=== PATIENT | female | born 1995 ===

== ENCOUNTER 2017-03-20 09:59 | Inpatient (IN) | payer OTHER ==
[2017-03-20 10:03] VITALS: BMI 23.4
[2017-03-20] MEDS ORDERED: Sodium Chloride 0.9% 1,000 ML IV STA ×2 (10:31→17:10)
--- NOTE | 2017-03-20 10:40 | ED PDOC ---
HPI: Abdomen Time Seen by Provider: 03/20/17 10:08 Chief Complaint (Nursing): Fever Chief Complaint (Provider): Fever History Per: Patient History/Exam Limitations: no limitations Onset/Duration Of Symptoms: Days (x3 days) Current Symptoms Are (Timing): Still Present Additional Complaint(s): 22 y/o female presents to the emergency department with a complaint of a fever, nausea, chills, and blood in urine x3 days. Associated with non-radiating abdominal pain located to the left upper region. Reports taking Tylenol about 2 days ago for pain. Denies history of infections to the urine or kidney, painful urination, vomiting, or constipation. Last menstrual period: July (states that is normal for her) Past Medical History Reviewed: Historical Data, Nursing Documentation, Vital Signs Vital Signs: Last Vital Signs Temp 98.3 F 03/20/17 10:05 Pulse 91 H 03/20/17 10:05 Resp 20 03/20/17 10:05 BP 103/64 03/20/17 10:05 Pulse Ox 100 03/20/17 10:48 - Medical History PMH: No Chronic Diseases - Surgical History Surgical History: No Surg Hx - Family History Family History: States: No Known Family Hx - Social History Current smoker - smoking cessation education provided: No Alcohol: None Drugs: Denies - Immunization History Hx Tetanus Toxoid Vaccination: No Hx Influenza Vaccination: No Hx Pneumococcal Vaccination: No - Home Medications Home Medications: Ambulatory Orders Medication Instructions Recorded Acetaminophen [Tylenol 325mg tab] 650 mg PO Q4H PRN #50 tab 03/20/17 Ciprofloxacin HCl [Cipro] 250 mg PO BID #14 tab 03/20/17 - Allergies Allergies/Adverse Reactions: Allergies Allergy/AdvReac Type Severity Reaction Status Date / Time No Known Allergies Allergy Verified 03/20/17 10:27 Review of Systems ROS Statement: Except As Marked, All Systems Reviewed And Found Negative Constitutional: Positive for: Fever, Chills Gastrointestinal: Positive for: Nausea, Abdominal Pain (Left upper region ). Negative for: Vomiting, Constipation Genitourinary Female: Positive for: Hematuria. Negative for: Dysuria, Frequency , Incontinence Physical Exam - Reviewed Nursing Documentation Reviewed: Yes Vital Signs Reviewed: Yes - Physical Exam Appears: Positive for: Non-toxic, No Acute Distress Head Exam: Positive for: ATRAUMATIC, NORMAL INSPECTION, NORMOCEPHALIC Skin: Positive for: Normal Color, Warm, Dry Eye Exam: Positive for: Normal appearance ENT: Positive for: Normal ENT Inspection. Negative for: Nasal Congestion, Pharyngeal Erythema Neck: Positive for: Normal, Supple Cardiovascular/Chest: Positive for: Regular Rate, Rhythm. Negative for: Murmur Respiratory: Positive for: Normal Breath Sounds. Negative for: Accessory Muscle Use, Respiratory Distress Gastrointestinal/Abdominal: Positive for: Soft, Tenderness (Tenderness to the LUQ). Negative for: Normal Exam Back: Positive for: Normal Inspection. Negative for: L CVA Tenderness, R CVA Tenderness Extremity: Positive for: Normal ROM. Negative for: Pedal Edema Neurologic/Psych: Positive for: Alert, Oriented (x3) - Laboratory Results Result Diagrams: 03/20/17 10:45 03/20/17 10:45 - ECG O2 Sat by Pulse Oximetry: 100 (RA) Pulse Ox Interpretation: Normal Medical Decision Making Medical Decision Making: Time: 10:30 Initial impression: Pyelonephritis Initial plan: --BMP --Urine DIP & Preg --CBC w/ diff --Toradol 30 mg IVP --Zofran 4 mg IVP --Sodium Chloride 1L IV --Blood Culture --Urine Culture --Urinalysis --Reevaluation Scribe Attestation: Documented by Padmini Goodman, acting as a scribe for Lacie Lamb MD. Provider Scribe Attestation: All medical record entries made by the Scribe were at my direction and personally dictated by me. I have reviewed the chart and agree that the record accurately reflects my personal performance of the history, physical exam, medical decision making, and the department course for this patient. I have also personally directed, reviewed, and agree with the discharge instructions and disposition. Disposition - Clinical Impression Clinical Impression: UTI (urinary tract infection) - Patient ED Disposition Is Patient to be Admitted: No Doctor Will See Patient In The: Office Counseled Patient/Family Regarding: Diagnosis, Need For Followup, Rx Given - Disposition Referrals: [facility] [Outside] [facility] [Outside] Disposition: Routine/Home Disposition Time: 15:35 Condition: STABLE Prescriptions: Acetaminophen [Tylenol 325mg tab] 650 mg PO Q4H PRN #50 tab PRN Reason: Pain, Mild (1-3) Ciprofloxacin HCl [Cipro] 250 mg PO BID #14 tab Instructions: Urinary Tract Infection in Women (ED) Forms: [facility] (Tanzanian) Print Language: NEPALI - POA Present On Arrival: Earline
[2017-03-20 10:57] LABS: RBC URINE 79 /hpf (0-3); URINE BACTERIA MANY (<OCC); URINE BILIRUBIN NEGATIVE (NEGATIVE); URINE BLOOD MODERATE (NEGATIVE); URINE COLOR AMBER (YELLOW); URINE GLUCOSE (UA) NEG (Normal); URINE KETONE 20 mg/dL (NEGATIVE); URINE LEUKOCYTE ESTERASE MOD Leu/uL (Negative); URINE PROTEIN >=500 mg/dL (NEGATIVE); WBC CLUMPS RARE /hpf; WBC URINE 850 /hpf (0-5)
[2017-03-20 10:58] LABS: BASO # 0.1 K/uL (0.0-0.2); BASO % 0.3 % (0.0-2.0); EOS % 0.1 % (0.0-4.0); LYMPH # 1.5 K/uL (1.0-4.3); LYMPH % 7.2 % (20.0-40.0); MEAN CELL VOLUME 87.3 fl (81.0-99.0); MEAN CORPUSCULAR HEMOGLOBIN 29.2 pg (27.0-31.0); MEAN CORPUSCULAR HGB CONC 33.5 g/dL (33.0-37.0); MONO # 1.7 K/uL (0.0-0.8); MONO % 8.2 % (0.0-10.0); NEUT # 17.8 K/uL (1.8-7.0); NEUT % 84.2 % (50.0-75.0); PLATELET COUNT 145 K/uL (130-400); RED CELL DISTRIBUTION WIDTH 13.1 % (11.5-14.5); WHITE BLOOD COUNT 21.2 K/uL (4.8-10.8)
[2017-03-20 11:03] LABS: BLOOD UREA NITROGEN 22 mg/dl (7-17); CALCIUM 9.9 mg/dL (8.4-10.2); CARBON DIOXIDE 25 mmol/L (22-30); CHLORIDE 102 mmol/L (98-107); GFR AFRICAN-AMERICAN > 60; GLUCOSE,RANDOM 96 mg/dL (65-105); POTASSIUM 3.9 MMOL/L (3.6-5.0); SODIUM 138 mmol/l (132-148)
[2017-03-20 13:26] LABS: NEUTROPHIL 86 % (42-75); TOTAL CELLS COUNTED 100
[2017-03-20] MEDS ORDERED: levoFLOXacin 500 mg in D5W 500 MG/100 ML BAG IVPB ONE (14:42)
--- NOTE | 2017-03-20 16:43 | CT ---
PROCEDURE: CT abdomen and pelvis dated 06/20/2017. HISTORY: uti, wbc 21k,chills COMPARISON: None. TECHNIQUE: Contiguous axial images of the abdomen and pelvis without oral or intravenous contrast material. Coronal and Sagittal reformats generated. Radiation dose: Total exam DLP = 428.92 mGy-cm. This CT exam was performed using one or more of the following dose reduction techniques: Automated exposure control, adjustment of the mA and/or kV according to patient size, and/or use of iterative reconstruction technique. FINDINGS: LOWER THORAX: Minimal bibasilar atelectasis with questionable trace joint effusions right greater than left. Tiny hiatal hernia. LIVER: Liver exhibits normal size measuring approximately 16.7 cm in CC dimension. Moderate to significant diffuse fatty hepatic infiltration. GALLBLADDER AND BILE DUCTS: Gallbladder is physiologically distended. No evidence of intraluminal gallbladder calculi. PANCREAS: The unenhanced pancreas appears grossly unremarkable. . SPLEEN: Spleen exhibits normal size and attenuation pattern without mass collection or calcification. ADRENALS: There are no adrenal lesions seen. . KIDNEYS AND URETERS: The kidneys exhibit relatively symmetric size. No evidence of nephrolithiasis or hydronephrosis. No obvious renal mass or collection. BLADDER: Urinary bladder is physiologically distended. Minimal wall thickening of possibly due to muscular hypertrophy. Rule out cystitis. REPRODUCTIVE: Uterus appears grossly unremarkable. APPENDIX: The appendix appears unremarkable best seen on coronal image number [id number]. BOWEL: Evaluation of the bowel is limited due to the lack of oral contrast material. The stomach is distended predominant with air. Visualized loops of small bowel exhibit normal contour and caliber. No evidence of acute mechanical small bowel obstruction. There is mild amount of stool seen throughout the colon consistent with fecal retention/constipation. PERITONEUM: Unremarkable. No fluid collection. No free air. LYMPH NODES: Unremarkable. No enlarged lymph nodes. VASCULATURE: Unremarkable. No aortic aneurysm. BONES: Osseous structures appear grossly unremarkable with no evidence of acute fractures or destructive lesions. OTHER FINDINGS: None. IMPRESSION: Minimal bibasilar atelectasis with questionable trace effusions right greater than left. Mild moderate to significant fatty hepatic infiltration. No evidence of cholelithiasis Findings consistent with constipation. No evidence of acute appendicitis. The the the the the
--- NOTE | 2017-03-20 17:23 | CP.PCM.HP ---
History of Present Illness - History of Present Illness History of Present Illness: CC: fevers HPI: 22 year old female no past medical history presents with a two week history of worsening fevers. Two days ago patient began to experience L flank pain, sharp, constant, not improving, nonradiating, no associated with any other symptoms. Pt denies dysuria, polyuria, malordorous urine. In ER pt was found to have fever 103 TMAX, WBC 21 and +UA. CT was neg for pyelonephritis, given Levaquin x1 in ER. Patient will be admitted for UTI requiring IV abx. Also Azotemic BUN 22. HD stable, NAD. ROS: per HPI, 12 systems reviewed and negative PMD: none PMH: denies PSH: denies FH: denies SH: denies tobacco, ETOH, IVDU Meds: as below Allergies: NKDA Vitals: reviewed and currently stable Exam: GEN: WDWN, alert, cooperative HEENT: NCAT, PERRL, EOMI NECK: supple, no JVD, no lymphadenopathy CARDIAC: +S1S2 RRR LUNG: CTAB No WRR ABD: SOFT NT ND BSX4 NO MASSES NO HSM BACK: mild CVA tenderness L flank EXT: +pedal pulses, equal strength NEURO: AAOx3 SKIN warm, dry PSYCH normal mood, normal affect Labs: 03/20/17 10:45 03/20/17 10:45 UA + LE Rads: CT ABD PEL, no pyelonephritis appreciated per report Active Medications: Allergies No Known Allergies Allergy (Verified 03/20/17 10:27) Height & Weight Height 5 ft Weight 120 lb Start Date/Time Active Medications 03/21/17 09:00 cefTRIAXone [Rocephin] 1,000 mg Sodium Chloride 0.9% 100 ml IVPB DAILY Assessment and Plan: 22 year old female no past medical history presents with a two week history of worsening fevers. Two days ago patient began to experience L flank pain, sharp, constant, not improving, nonradiating, no associated with any other symptoms. Pt denies dysuria, polyuria, malordorous urine. In ER pt was found to have fever 103 TMAX, WBC 21 and +UA. CT was neg for pyelonephritis, given Levaquin x1 in ER. Patient will be admitted for UTI requiring IV abx. Also Azotemic BUN 22. HD stable, NAD. UTI febrile TMAX 103 WBC 21k urine culture pending blood cultures pending Continue ceftriaxone otherwise HD stable VTE ppx pt ambulates Present on Admission - Present on Admission Any Indicators Present on Admission: No Past Patient History - Past Social History Alcohol: None Drugs: Denies - PSYCHIATRIC Hx Substance Use: No - SURGICAL HISTORY Hx Surgeries: No - ANESTHESIA Hx Anesthesia: No Hx Anesthesia Reactions: No Hx Malignant Hyperthermia: No Meds Home Medications: Home Medication List Medication Instructions Recorded Confirmed Type Acetaminophen [Tylenol 325mg tab] 650 mg PO Q4H PRN #50 tab 03/20/17 Rx Ciprofloxacin HCl [Cipro] 250 mg PO BID #14 tab 03/20/17 Rx Allergies/Adverse Reactions: Allergies Allergy/AdvReac Type Severity Reaction Status Date / Time No Known Allergies Allergy Verified 03/20/17 10:27 Results - Vital Signs Recent Vital Signs: Last Vital Signs Temp 103.1 F H 03/20/17 17:07 Pulse 91 H 03/20/17 10:05 Resp 20 03/20/17 10:05 BP 103/64 03/20/17 10:05 Pulse Ox 100 03/20/17 15:38 - Labs Result Diagrams: 03/20/17 10:45 03/20/17 10:45
[2017-03-20] MEDS: Sodium Chloride 0.9% 1,000 ML IV SCH ×3 (20:26→22:24)
[2017-03-20 21:07] LABS: VENOUS BLOOD GAS BASE EXCESS -2.7 mmol/L (0.0-2.0); VENOUS BLOOD GAS PCO2 40 mmHg (40-60); VENOUS BLOOD PH 7.36 (7.32-7.43)
[2017-03-20 22:24] LABS: VENOUS BLOOD GAS BASE EXCESS -4.5 mmol/L (0.0-2.0); VENOUS BLOOD GAS PCO2 43 mmHg (40-60); VENOUS BLOOD PH 7.31 (7.32-7.43)
[2017-03-21] MEDS: Sodium Chloride 0.9% 1,000 ML IV SCH (04:49)
[2017-03-21 06:58] LABS: BASO # 0.1 K/uL (0.0-0.2); BASO % 0.4 % (0.0-2.0); EOS % 0.2 % (0.0-4.0); HEMATOCRIT 31.8 % (34.0-47.0); LYMPH # 1.6 K/uL (1.0-4.3); LYMPH % 10.6 % (20.0-40.0); MEAN CELL VOLUME 87.2 fl (81.0-99.0); MEAN CORPUSCULAR HEMOGLOBIN 29.9 pg (27.0-31.0); MEAN CORPUSCULAR HGB CONC 34.3 g/dL (33.0-37.0); MEAN PLATELET VOLUME 9.6 fl (7.2-11.7); MONO # 1.4 K/uL (0.0-0.8); MONO % 8.9 % (0.0-10.0); NEUT # 12.2 K/uL (1.8-7.0); NEUT % 79.9 % (50.0-75.0); WHITE BLOOD COUNT 15.3 K/uL (4.8-10.8)
[2017-03-21 07:05] LABS: BLOOD UREA NITROGEN 12 mg/dl (7-17); CALCIUM 8.2 mg/dL (8.4-10.2); CARBON DIOXIDE 17 mmol/L (22-30); CHLORIDE 111 mmol/L (98-107); GFR AFRICAN-AMERICAN > 60; GLUCOSE,RANDOM 78 mg/dL (65-105); POTASSIUM 3.6 MMOL/L (3.6-5.0); SODIUM 138 mmol/l (132-148)
--- NOTE | 2017-03-21 12:59 | CP.PCM.PN ---
Subjective - Date & Time of Evaluation Date of Evaluation: 03/21/17 Time of Evaluation: 08:00 - Subjective Subjective: Patient seen and examined bedside.Complaining of fever and sweating . Tmax 100.5 WBC 15 K Denies any abdominal pain Blood and urine cx still pending No acute issues overnight Objective - Vital Signs/Intake and Output Vital Signs (last 24 hours): Temp Pulse Resp BP Pulse Ox 98.1 F 77 18 96/56 L 97 03/21/17 08:00 03/21/17 08:00 03/21/17 08:00 03/21/17 08:00 03/21/17 08:00 Intake and Output: 03/21/17 03/21/17 06:59 18:59 Intake Total 1410 Balance 1410 - Medications Medications: Current Medications Acetaminophen (Tylenol 325mg Tab) 650 mg PO Q6 PRN PRN Reason: Fever >100.4 F Last Admin: 03/21/17 04:50 Dose: 650 mg Ceftriaxone Sodium 1 gm/ (Sodium Chloride) 100 mls @ 100 mls/hr IVPB DAILY NELSON Last Admin: 03/21/17 09:37 Dose: 100 mls/hr - Labs Labs: 03/21/17 05:00 03/21/17 05:00 - Constitutional Appears: Non-toxic, No Acute Distress - Head Exam Head Exam: ATRAUMATIC, NORMAL INSPECTION, NORMOCEPHALIC - Eye Exam Eye Exam: EOMI, Normal appearance, PERRL Pupil Exam: NORMAL ACCOMODATION - ENT Exam ENT Exam: Mucous Membranes Moist, Normal Exam - Neck Exam Neck Exam: Full ROM, Normal Inspection - Respiratory Exam Respiratory Exam: Clear to Ausculation Bilateral, NORMAL BREATHING PATTERN. absent: Rales, Rhonchi, Wheezes - Cardiovascular Exam Cardiovascular Exam: REGULAR RHYTHM, RRR, +S1, +S2. absent: JVD - GI/Abdominal Exam GI & Abdominal Exam: Soft, Normal Bowel Sounds. absent: Distended, Guarding, Tenderness, Rebound - Rectal Exam Rectal Exam: Deferred - Extremities Exam Extremities Exam: Full ROM, Normal Capillary Refill, Normal Inspection - Back Exam Back Exam: NORMAL INSPECTION - Neurological Exam Neurological Exam: Alert, Awake, CN II-XII Intact, Oriented x3 - Psychiatric Exam Psychiatric exam: Normal Affect, Normal Mood - Skin Skin Exam: Dry, Intact, Normal Color, Warm Assessment and Plan - Assessment and Plan (Free Text) Assessment: 22 year old female with no past medical history presented with two week history of worsening fevers. Two days ago patient began to experience L flank pain, sharp, constant, not improving, nonradiating, no associated with any other symptoms. Denied urinary symptoms. In ER patient was found to have fever 103 WBC 21 and +UA. CT was neg for pyelonephritis, given Levaquin x1 in ER. Patient admitted for UTI requiring IV abx. 1.UTI Tmax 100.5 WBC trended down fro m 21 K - 15 K Urine cx positive for gram negative indy Blood cx with no growth Follow up identification and sensitivities Continue Rocephin IV 2.VTE ppx ambulatory in unit
[2017-03-22 06:31] LABS: HEMATOCRIT 33.2 % (34.0-47.0); MEAN CELL VOLUME 88.3 fl (81.0-99.0); MEAN CORPUSCULAR HEMOGLOBIN 29.2 pg (27.0-31.0); RED CELL DISTRIBUTION WIDTH 13.3 % (11.5-14.5)
--- NOTE | 2017-03-22 14:43 | CP.PCM.PN ---
Subjective - Date & Time of Evaluation Date of Evaluation: 03/22/17 Time of Evaluation: 12:00 - Subjective Subjective: Febrile to 101.9 at 1 am flank pain better feels better No CP no SOB Objective - Vital Signs/Intake and Output Vital Signs (last 24 hours): Temp Pulse Resp BP Pulse Ox 98.4 F 77 20 157/97 H 95 03/22/17 12:00 03/22/17 12:00 03/22/17 12:00 03/22/17 12:00 03/22/17 12:00 - Medications Medications: Current Medications Acetaminophen (Tylenol 325mg Tab) 650 mg PO Q6 PRN PRN Reason: Fever >100.4 F Last Admin: 03/22/17 01:32 Dose: 650 mg Acetaminophen (Tylenol 325mg Tab) 650 mg PO Q6 PRN PRN Reason: Pain, Mild (1-3) Last Admin: 03/21/17 18:18 Dose: 650 mg Ceftriaxone Sodium 1 gm/ (Sodium Chloride) 100 mls @ 100 mls/hr IVPB Q12 NELSON - Constitutional Appears: No Acute Distress - Head Exam Head Exam: NORMAL INSPECTION, NORMOCEPHALIC - Eye Exam Eye Exam: EOMI, Normal appearance, PERRL Pupil Exam: NORMAL ACCOMODATION - ENT Exam ENT Exam: Mucous Membranes Moist, Normal External Ear Exam - Neck Exam Neck Exam: Full ROM. absent: Meningismus - Respiratory Exam Respiratory Exam: NORMAL BREATHING PATTERN. absent: Rales, Wheezes, Respiratory Distress - Cardiovascular Exam Cardiovascular Exam: REGULAR RHYTHM, +S1, +S2 - GI/Abdominal Exam GI & Abdominal Exam: Soft, Normal Bowel Sounds. absent: Tenderness - Extremities Exam Extremities Exam: Full ROM, Normal Capillary Refill. absent: Calf Tenderness, Pedal Edema - Back Exam Back Exam: CVA tenderness (L), Full ROM, NORMAL INSPECTION. absent: CVA tenderness (R) - Neurological Exam Neurological Exam: Alert, Awake, CN II-XII Intact, Normal Gait, Oriented x3 Neuro motor strength exam: Left Upper Extremity: 5, Right Upper Extremity: 5, Left Lower Extremity: 5, Right Lower Extremity: 5 - Psychiatric Exam Psychiatric exam: Normal Affect, Normal Mood - Skin Skin Exam: Dry, Normal Color, Warm Assessment and Plan - Assessment and Plan (Free Text) Assessment: 22 year old female with no past medical history presented with two week history of worsening fevers. Two days ago patient began to experience L flank pain, sharp, constant, not improving, nonradiating, no associated with any other symptoms. Denied urinary symptoms. In ER patient was found to have fever 103 WBC 21 and +UA. CT was neg for pyelonephritis, given Levaquin x1 in ER. Patient admitted for UTI requiring IV abx. 1.Sepsis ( POA) sec to UTI - E coli Pt came in with fever of 103, WBC ct 21K, sl hypotensive WBC trended down fro m 21 K - 15 K Urine cx: E coli sensitive to Ceftriaxone Blood cx with no growth Continue Rocephin IV 2.VTE ppx ambulatory in unit
[2017-03-22 23:50] VITALS: RESP 18
[2017-03-23 07:27] LABS: BASO # 0.1 K/uL (0.0-0.2); BASO % 0.6 % (0.0-2.0); EOS # 0.2 K/uL (0.0-0.7); EOS % 1.5 % (0.0-4.0); HEMATOCRIT 36.1 % (34.0-47.0); LYMPH # 2.8 K/uL (1.0-4.3); LYMPH % 25.5 % (20.0-40.0); MEAN CELL VOLUME 88.4 fl (81.0-99.0); MEAN CORPUSCULAR HEMOGLOBIN 29.5 pg (27.0-31.0); MEAN CORPUSCULAR HGB CONC 33.4 g/dL (33.0-37.0); MEAN PLATELET VOLUME 8.6 fl (7.2-11.7); MONO % 9.1 % (0.0-10.0); NEUT # 6.9 K/uL (1.8-7.0); NEUT % 63.3 % (50.0-75.0); RED CELL DISTRIBUTION WIDTH 13.2 % (11.5-14.5); WHITE BLOOD COUNT 10.8 K/uL (4.8-10.8)
[2017-03-23 07:43] LABS: BLOOD UREA NITROGEN 12 mg/dl (7-17); CALCIUM 9.3 mg/dL (8.4-10.2); CARBON DIOXIDE 25 mmol/L (22-30); CHLORIDE 108 mmol/L (98-107); GFR AFRICAN-AMERICAN > 60; GLUCOSE,RANDOM 94 mg/dL (65-105); POTASSIUM 3.9 MMOL/L (3.6-5.0); SODIUM 141 mmol/l (132-148)
[2017-03-23 07:55] VITALS: BP 109/71; PULSE 71; TEMP 98.8; O2SAT 97
--- NOTE | 2017-03-23 09:15 | CP.PCM.DIS ---
Provider - Provider Date of Admission: 03/22/17 08:07 Attending physician: Karen Boyer DO Time Spent in preparation of Discharge (in minutes): 25 Diagnosis - Discharge Diagnosis (1) Sepsis Status: Acute (2) Sepsis due to Escherichia coli Status: Acute (3) UTI (urinary tract infection) Status: Acute Hospital Course - Lab Results Lab Results: Most Recent Lab Values WBC 10.8 K/uL (4.8-10.8) 03/23/17 06:00 RBC 4.09 Mil/uL (3.80-5.20) 03/23/17 06:00 Hgb 12.1 g/dL (12.0-16.0) 03/23/17 06:00 Hct 36.1 % (34.0-47.0) 03/23/17 06:00 MCV 88.4 fl (81.0-99.0) 03/23/17 06:00 MCH 29.5 pg (27.0-31.0) 03/23/17 06:00 MCHC 33.4 g/dL (33.0-37.0) 03/23/17 06:00 RDW 13.2 % (11.5-14.5) 03/23/17 06:00 Plt Count 259 K/uL (130-400) 03/23/17 06:00 MPV 8.6 fl (7.2-11.7) 03/23/17 06:00 Neut % (Auto) 63.3 % (50.0-75.0) 03/23/17 06:00 Lymph % (Auto) 25.5 % (20.0-40.0) 03/23/17 06:00 [place] % (Auto) 9.1 % (0.0-10.0) 03/23/17 06:00 Eos % (Auto) 1.5 % (0.0-4.0) 03/23/17 06:00 Baso % (Auto) 0.6 % (0.0-2.0) 03/23/17 06:00 Neut # 6.9 K/uL (1.8-7.0) 03/23/17 06:00 Lymph # 2.8 K/uL (1.0-4.3) 03/23/17 06:00 [place] # 1.0 K/uL (0.0-0.8) H 03/23/17 06:00 Eos # 0.2 K/uL (0.0-0.7) 03/23/17 06:00 Baso # 0.1 K/uL (0.0-0.2) 03/23/17 06:00 Neutrophils % (Manual) 86 % (42-75) H 03/20/17 10:45 Band Neutrophils % 1 % (0-2) 03/20/17 10:45 Lymphocytes % (Manual) 5 % (20-50) L 03/20/17 10:45 Monocytes % (Manual) 8 % (0-10) 03/20/17 10:45 Platelet Estimate Normal (NORMAL) 03/20/17 10:45 Anisocytosis (manual) Slight 03/20/17 10:45 pO2 20 mm/Hg (30-55) L 03/20/17 22:21 VBG pH 7.31 (7.32-7.43) L 03/20/17 22:21 VBG pCO2 43 mmHg (40-60) 03/20/17 22:21 VBG HCO3 19.5 mmol/L 03/20/17 22:21 VBG Total CO2 23.0 mmol/L (22-28) 03/20/17 22:21 VBG O2 Sat (Calc) 35.8 % (40-65) L 03/20/17 22:21 VBG Base Excess -4.5 mmol/L (0.0-2.0) L 03/20/17 22:21 VBG Potassium 4.3 mmol/L (3.6-5.2) 03/20/17 22:21 A-a O2 Difference 76.0 mm/Hg 03/20/17 22:21 Sodium 138.0 mmol/L (132-148) 03/20/17 22:21 Chloride 111.0 mmol/L (98-107) H 03/20/17 22:21 Glucose 90 mg/dL (65-105) 03/20/17 22:21 Lactate 0.8 mmol/L (0.7-2.1) 03/20/17 22:21 FiO2 21.0 % 03/20/17 22:21 Blood Gas Comments Vbg 03/20/17 22:21 Crit Value Called To Morteza kohler 03/20/17 22:21 Crit Value Called By 15 03/20/17 22:21 Crit Value Read Back Y 03/20/17 22:21 Blood Gas Notified Time 222303/20/17 22:21 Sodium 141 mmol/l (132-148) 03/23/17 06:00 Potassium 3.9 MMOL/L (3.6-5.0) 03/23/17 06:00 Chloride 108 mmol/L (98-107) H 03/23/17 06:00 Carbon Dioxide 25 mmol/L (22-30) 03/23/17 06:00 Anion Gap 12 (10-20) 03/23/17 06:00 BUN 12 mg/dl (7-17) 03/23/17 06:00 Creatinine 1.0 mg/dL (0.7-1.2) 03/23/17 06:00 Est GFR ( Amer) > 60 03/23/17 06:00 Est GFR (Non-Af Amer) > 60 03/23/17 06:00 Random Glucose 94 mg/dL (65-105) 03/23/17 06:00 Calcium 9.3 mg/dL (8.4-10.2) 03/23/17 06:00 Venous Blood Potassium 4.3 mmol/L (3.6-5.2) 03/20/17 22:21 Urine Color Carla (YELLOW) 03/20/17 10:35 Urine Clarity Turbid (Clear) 03/20/17 10:35 Urine pH 5.0 (5.0-8.0) 03/20/17 10:35 Ur Specific [place] 1.027 (1.003-1.030) 03/20/17 10:35 Urine Protein >=500 mg/dL (NEGATIVE) 03/20/17 10:35 Urine Glucose (UA) Neg mg/dL (Normal) 03/20/17 10:35 Urine Ketones 20 mg/dL (NEGATIVE) 03/20/17 10:35 Urine Blood Moderate (NEGATIVE) 03/20/17 10:35 Urine Nitrate Negative (NEGATIVE) 03/20/17 10:35 Urine Bilirubin Negative (NEGATIVE) 03/20/17 10:35 Urine Urobilinogen 4.0 mg/dL (0.2-1.0) H 03/20/17 10:35 Ur Leukocyte Esterase Mod [place]man/uL (Negative) 03/20/17 10:35 Urine RBC (Auto) 79 /hpf (0-3) H 03/20/17 10:35 Urine WBC Clumps (Auto) Rare /hpf (NONE) H 03/20/17 10:35 Urine Microscopic WBC 850 /hpf (0-5) H 03/20/17 10:35 Ur Squamous Epith Cells 33 /hpf (0-5) H 03/20/17 10:35 Urine Bacteria Many (<OCC) H 03/20/17 10:35 - Hospital Course Hospital Course: 22 year old female with no past medical history presented with two week history of worsening fevers. Two days ago patient began to experience L flank pain, sharp, constant, not improving, nonradiating, no associated with any other symptoms. Denied urinary symptoms. In ER patient was found to have fever 103 WBC 21 and +UA. CT was neg for pyelonephritis, given Levaquin x1 in ER. Patient admitted for UTI requiring IV abx. 1.Sepsis ( POA) sec to UTI - E coli Pt came in with fever of 103, WBC ct 21K, sl hypotensive WBC trended down fro m 21 K - 15 K Urine cx: E coli sensitive to Ceftriaxone Blood cx with no growth Received Rocephin IV 2.VTE ppx ambulatory in unit Discharge Exam - Head Exam Head Exam: NORMAL INSPECTION, NORMOCEPHALIC - Eye Exam Eye Exam: EOMI, Normal appearance, PERRL Pupil Exam: NORMAL ACCOMODATION - ENT Exam ENT Exam: Mucous Membranes Moist, Normal External Ear Exam - Neck Exam Neck exam: Full Rom - Respiratory Exam Respiratory Exam: NORMAL BREATHING PATTERN. absent: Respiratory Distress - Cardiovascular Exam Cardiovascular Exam: REGULAR RHYTHM, +S1, +S2 - GI/Abdominal Exam GI & Abdominal Exam: Normal Bowel Sounds, Soft. absent: Tenderness - Extremities Exam Extremities exam: full ROM, normal capillary refill, pedal pulses present - Back Exam Back exam: FULL ROM. absent: CVA tenderness (L), CVA tenderness (R), paraspinal tenderness, vertebral tenderness - Neurological Exam Neurological exam: Alert, CN II-XII Intact, Normal Gait, Oriented x3, Reflexes Normal - Psychiatric Exam Psychiatric exam: Normal Affect, Normal Mood - Skin Skin Exam: Dry, Normal Color, Warm Discharge Plan - Discharge Medications Prescriptions: Sulfamethoxazole/Trimethoprim [Bactrim DS 800 mg-160 mg] 1 tab PO BID #14 tab - Follow Up Plan Condition: GOOD Disposition: HOME/ ROUTINE Instructions: Urinary Tract Infection in Women (ED) Additional Instructions: appt [facility] in 1 wk Referrals: [facility] [Outside] [facility] [Outside]
== END 2017-03-23 11:30 | disposition home or self-care (01) | DRG 901 ==
LOC: H.ER 09:59 → H.ERHOLD 17:06 → H.TEL 22:43 → OBSVTOIN 03-22 08:07
PROVIDERS: ADMIT Student in an Organized Health Care Education/Training Program; ATTEND Student in an Organized Health Care Education/Training Program
DX: A41.51 Sepsis due to Escherichia coli [E. coli] (principal); N39.0 Urinary tract infection, site not specified